=== PATIENT | male | born 1960 | race Caucasian/White ===

== ENCOUNTER 2023-12-20 13:45 | Emergency (ER) | payer MEDICARE, OTHER, SELFPAY ==
[2023-12-20 13:47] VITALS: BP 125/78
[2023-12-20 16:00] VITALS: BP 129/86
--- NOTE | 2023-12-20 16:31 | ED.GENMED ---
History of Present Illness
General
Chief Complaint: Musculo-Skeletal Complaint
Time Seen by Provider: 12/20/23 15:41
Travel History
Have you had any contact with someone who has COVID-19?: No
Do you have any symptoms of coronavirus? Fever > 100 degrees, chills, cough, shortness of breath, sore throat, loss of taste or smell, muscle aches, or headache?: No
History of Present Illness
History of Present Illness:
63-year-old male with history of Parkinson's status post deep brain stimulator presents to the emergency department for evaluation of right-sided abdominal pain. He states the pain began last night after 'diving into' bed but was not severe. Today
while trying to pull he felt something 'snap' in the right abdomen. Pain is present while he is at rest. It is worse when he bends over and stands back. Denies any fever, chills, sweats, nausea, vomiting, appetite changes, dysuria, or diarrhea.
No history of abdominal surgeries
Past History
Past History
ED Past Medical History: Other (Parkinsons)
ED Past Surgical History: Other (Brain surgery with inplanted Stimulator)
Social History
Tobacco: Non-smoker
Alcohol: None
Drug: None
Personal:
Living: with family
Review of Systems
Review of Systems
Allergies reviewed?: Yes
All Other Systems: ROS reviewed and negative except as documented in HPI and ROS
Phy Exam
Physical Exam
Physical Exam:
GEN: Well appearing, NAD, WDWN
HEENT: Oral mucosa moist, no scleral icterus
Cardiac: Regular rate
Lung: No respiratory distress, no tachypnea
Abdomen: Soft, minimal tenderness time right lower abdomen inferior to McBurney's point, essentially at the insertion of the anterior abdominal process into the pelvis.
MSK: No gross deformity or injuries
Skin: Good color, no pallor or jaundice, no rashes
Neuro: AO x3, moves all extremities freely
Psych: Calm, cooperative
Course
Orders/Labs/Results
Orders:
Orders
12/20/23 16:30
Ketorolac [Toradol] 30 mg IM NOW STA
Vital Signs
Initial and Last Documented VS:
Initial Vital Signs
Temp Pulse Resp BP Pulse Ox
97.7 F 56 20 125/78 98
12/20/23 13:47 12/20/23 13:47 12/20/23 13:47 12/20/23 13:47 12/20/23 13:47
Last Documented Vital Signs
Temp Pulse Resp BP Pulse Ox
97.7 F 75 20 129/86 98
12/20/23 13:47 12/20/23 16:00 12/20/23 16:00 12/20/23 16:00 12/20/23 16:00
MDM/Problems Addressed
MDM/Problems Addressed:
Patient very clearly had a mechanical injury last night that was worsened while bowling today. His abdominal exam, discussed supportive care
*Critical Care Note
Total Time (30-74mins, 75-104mins- exclusive of procedures): Not Applicable
ED Attending Note
-
Portions of this chart may have been created with voice recognition software.� Occasional wrong word or��sound alike� substitutions may have occurred due to the inherent limitations of voice recognition software.
Discharge Plan
Departure
Patient Disposition: Home (Routine Discharge)
Date of Disposition: 12/20/23
Time of Disposition: 16:32
Patient with high blood pressure during this ER visit?: No
Discharge Problem:
Strain of abdominal muscle
Instructions: Abdominal Muscle Strain (DC)
Prescriptions:
New
diclofenac sodium 75 mg tablet,delayed release (DR/EC)
75 mg PO BID PRN (Reason: Pain) Qty: 20 0RF
No Action
clonazepam 1 MG tablet
1.5 mg PO HS
selegiline HCl 5 MG tablet
5 mg PO DAILY
MIRAPEX
1 mg PO TID
Patient Comments:
Takes at 5,11,5
Stalevo
100 mg PO QID
carbidopa-levodopa 1 EACH tablet extended release
2 tab PO HS
epinephrine [EpiPen] 0.3 MG/0.3/SYRINGE auto-injector
0.3 mg IM PRN PRN (Reason: Bee sting) Qty: 1 0RF
multivitamin [Anb-Ntbozu-Dixtu] 1 EACH tablet
1 ea PO DAILY
carbidopa-levodopa 1 TABLET tablet
1 tab PO BID
albuterol sulfate 1 PUFF HFA aerosol inhaler
2 puff inhalation R Q4HPRN PRN (Reason: wheezing, shortness of breath) Qty: 0 0RF
Rx Instructions:
You may take 2 puff before exercising
cyclobenzaprine 10 MG tablet
10 mg PO TIDPRN PRN (Reason: muscle spasm) Qty: 30 0RF
diclofenac sodium 75 MG tablet,delayed release (DR/EC)
75 mg PO BID Qty: 30 0RF
Rx Instructions:
Take with food.
clindamycin HCl 300 mg capsule
300 mg PO TID Qty: 21 0RF
Referrals:
UNKNOWN - PT DOES,NOT KNOW [Family Provider] -
Interventions
Interventions:
*Risk Screen - Suicide Last Done: 12/20/23 16:00
*General Assessment Last Done: 12/20/23 16:00
*Neglect/Abuse Screening Last Done: 12/20/23 16:00
*ED COVID-19 Vaccine History Last Done: 12/20/23 13:47
*Nursing Disposition Last Done: 12/20/23 16:58
ED-Musculoskeletal Assessment Last Done: 12/20/23 16:00
Discharge Date and Time
Discharge Date/Time: 12/20/23 16:59
Print Language: [place] R[place]
[2023-12-20] MEDS: TORADOL 30 MG IM (16:45)
== END 2023-12-20 16:59 | disposition home or self-care (01) ==
LOC: EMR 13:45
PROVIDERS: EMERGENCY PHYSICIAN Student in an Organized Health Care Education/Training Program
DX: S39.011A Strain of muscle, fascia and tendon of abdomen, initial encounter (principal); X58.XXXA Exposure to other specified factors, initial encounter
CPT/HCPCS: 99284; 96372

== ENCOUNTER 2024-04-11 14:25 | Emergency (ER) | payer MEDICARE, OTHER, SELFPAY ==
[2024-04-11] VITALS (14 sets, daily range): BP systolic 116–154; BP diastolic 74–90; BMI 27.3
[2024-04-11] MEDS: SUBLIMAZE 100 MCG IV (14:54)
--- NOTE | 2024-04-11 15:17 | ED.GENMED ---
History of Present Illness
General
Chief Complaint: Musculo-Skeletal Complaint
Source: patient
Time Seen by Provider: 04/11/24 14:36
History of Present Illness
History of Present Illness:
64-year-old male presents to the emergency room complaining right shoulder pain. Patient had a trip and fall landing on an outstretched arm. He developed shoulder pain immediately. No other injuries. He does not take any oral anticoagulants.
Past History
Past History
ED Past Medical History: Other (Parkinsons)
ED Past Surgical History: Other (Brain surgery with inplanted Stimulator)
Social History
Tobacco: Non-smoker
Alcohol: None
Drug: None
Personal:
Living: with family
Phy Exam
Physical Exam
Physical Exam:
General: Awake, Alert, Oriented X3. Patient in distress due to shoulder pain
Vitals: unremarkable
Head: Atraumatic
Eyes: Pupils equal, EOMI
Throat: Airway intact, no exudates
Neck: Trachea midline
Lungs: Clear and equal b/l
Heart: Regular rate, no murmurs
Abd: Soft, Nontender, No pulsatile mass
Neuro: Nonfocal
Skin: Warm, dry, no rash
Extremities: Deformity right shoulder, neurovascularly intact
Course
Orders/Labs/Results
Orders:
Orders
04/11/24 14:47
Fentanyl Citrate/Pf [Sublimaze] 100 mcg IV NOW STA
04/11/24 14:48
CR Shoulder - Right Min 2 View Urgent
Reason For Exam: pain after fall
04/11/24 15:33
Propofol [Diprivan] 20 ml .ROUTE .STK-MED
04/11/24 15:40
Shoulder, Right 1 View [CR Shoulder - Right 1 View] Urgent
Comment:
Reason For Exam: post reduction
Vital Signs
Initial and Last Documented VS:
Initial Vital Signs
Temp Pulse Resp BP Pulse Ox
98.3 F 85 16 116/74 98
04/11/24 14:27 04/11/24 14:27 04/11/24 14:27 04/11/24 14:27 04/11/24 14:27
Last Documented Vital Signs
Temp Pulse Resp BP Pulse Ox
97.8 F 62 18 146/89 93
04/11/24 16:01 04/11/24 16:16 04/11/24 16:16 04/11/24 16:16 04/11/24 16:16
Procedures
Moderate Sedation
ASA Risk Score: Class III
Chart and allergies reviewed: Yes
Consent for anesthesia obtained: Yes
Time out completed (validating right patient & procedure): Yes
Moderate Sedation Start Time(when first medication is given): 15:36
History of difficult intubation: No
Airway free of obstruction: Yes
Patient has a gag reflex: Yes
Patient is able to open mouth: Yes
Patient has no dentures: No
Patient has no loose teeth: Yes
Medication administered by Provider during Moderate Sedation: IV Propofol (mg)
Total dose administered: 70
Time drug administered: 15:36
Moderate Sedation Procedure End Time: 15:46
Joint/Fracture Reduction
Right Shoulder:
Indication for procedure:: shoulder dislocation
Procedure completed by: myself and Kike Phipps
Consent form signed: Yes
Joint reduced: with anesthesia sedation
Anesthesia/sedation: Moderate sedation
Injury was: closed
Further treatement: needs re-check only
Post reduction exam: stable
Capillary Refill: normal
Normal distal neurovascular exam?: Yes
MDM/Problems Addressed
Differential Diagnosis Includes:
prox humeral fx, shoulder dislocation, clavicle fracture,
MDM/Problems Addressed:
X-ray confirms the presence of a right shoulder dislocation. Patient was in significant discomfort. This was initially treated with 100 mcg of fentanyl. He would not tolerate any attempt at reduction without sedation. Therefore procedural
sedation was given. Patient tolerated the sedation well. Shoulder was easily reduced with the help of Kike Espinoza PA-C. Will have patient follow-up with orthopedics as an outpatient. Will discharge him with a shoulder immobilizer.
Chronic conditions affecting care: Other (Parkinson's disease)
*Radiology
Radiology exam reviewed: preliminary read by ED provider (Initial x-ray shows a right shoulder dislocation without fracture. Postreduction x-ray shows adequate reduction.)
*Pulse Oximetry
Patient hypoxic: no
*Critical Care Note
Total Time (30-74mins, 75-104mins- exclusive of procedures): Not Applicable
Patient Management
Social determinants of health affecting care: Strong social support
ED Attending Note
-
Portions of this chart may have been created with voice recognition software.� Occasional wrong word or��sound alike� substitutions may have occurred due to the inherent limitations of voice recognition software.
Discharge Plan
Departure
Patient Disposition: Home (Routine Discharge)
Date of Disposition: 04/11/24
Time of Disposition: 16:24
Patient with high blood pressure during this ER visit?: No
Condition: Good
Discharge Problem:
Anterior shoulder dislocation
Instructions: Shoulder Dislocation (DC), How to Use a Shoulder Sling, Procedural Sedation, Adult ED
Prescriptions:
No Action
clonazepam 1 MG tablet
1.5 mg PO HS
selegiline HCl 5 MG tablet
5 mg PO DAILY
MIRAPEX
1 mg PO TID
Patient Comments:
Takes at 5,11,5
Stalevo
100 mg PO QID
carbidopa-levodopa 1 EACH tablet extended release
2 tab PO HS
epinephrine [EpiPen] 0.3 MG/0.3/SYRINGE auto-injector
0.3 mg IM PRN PRN (Reason: Bee sting) Qty: 1 0RF
multivitamin [Wcc-Herlct-Bpebh] 1 EACH tablet
1 ea PO DAILY
carbidopa-levodopa 1 TABLET tablet
1 tab PO BID
albuterol sulfate 1 PUFF HFA aerosol inhaler
2 puff inhalation R Q4HPRN PRN (Reason: wheezing, shortness of breath) Qty: 0 0RF
Rx Instructions:
You may take 2 puff before exercising
cyclobenzaprine 10 MG tablet
10 mg PO TIDPRN PRN (Reason: muscle spasm) Qty: 30 0RF
diclofenac sodium 75 MG tablet,delayed release (DR/EC)
75 mg PO BID Qty: 30 0RF
Rx Instructions:
Take with food.
clindamycin HCl 300 mg capsule
300 mg PO TID Qty: 21 0RF
diclofenac sodium 75 mg tablet,delayed release (DR/EC)
75 mg PO BID PRN (Reason: Pain) Qty: 20 0RF
Referrals:
Steve Mckeon MD [Active] -
Sarah Pickering PA-C [Family Provider] -
Interventions
Interventions:
*Risk Screen - Suicide Last Done: 04/11/24 17:00
*General Assessment Last Done: 04/11/24 14:27
*Neglect/Abuse Screening Last Done: 04/11/24 14:27
ED- Fall Risk Assessment Last Done: 04/11/24 16:10
*ED COVID-19 Vaccine History Last Done: 04/11/24 14:40
*Nursing Disposition Last Done: 04/11/24 17:00
ED-Musculoskeletal Assessment Last Done: 04/11/24 14:40
Discharge Date and Time
Discharge Date/Time: 04/11/24 17:00
Print Language: MONGOLIAN
== END 2024-04-11 17:00 | disposition home or self-care (01) ==
LOC: EMR 14:25
PROVIDERS: EMERGENCY PHYSICIAN Emergency Medicine; FAMILY PHYSICIAN Physician Assistant Medical
DX: S43.004A Unspecified dislocation of right shoulder joint, initial encounter (principal); W01.0XXA Fall on same level from slipping, tripping and stumbling without subsequent striking against object, initial encounter; G20.A1 Parkinson's disease without dyskinesia, without mention of fluctuations; Z91.030 Bee allergy status; Z91.048 Other nonmedicinal substance allergy status
CPT/HCPCS: 99285; 23650; 96374; 99152; 73020; 73030

== ENCOUNTER 2024-05-05 14:32 | Emergency (ER) | payer MEDICARE, OTHER, SELFPAY ==
[2024-05-05 14:44] VITALS: BP 142/86
--- NOTE | 2024-05-05 15:37 | ED.GENMED ---
History of Present Illness
General
Chief Complaint: Fall
Time Seen by Provider: 05/05/24 15:37
History of Present Illness
History of Present Illness:
HPI: The patient presents after multiple falls. He wanted to come in for further evaluation to make sure everything is okay. However he also tells me he feels safe at home and does not feel that he needs to be placed anywhere. He fell while he
was [place] cruise ship recently and he states that they reduced the right shoulder dislocation at that time. He fell yesterday striking his face/head on the table there which she has facial ecchymosis. He fell 3 additional times a day and thinks
that he dislocated his shoulder 3 times a day I was able to reduce it on his own.
EXAM:
GENERAL: The patient appears somewhat weak and debilitated
HEAD: There is no scalp hematoma but there is facial ecchymosis and edema noted to the nasal bone and left periorbital region but no bony tenderness
C-SPINE: No midline C-spine tenderness
HEENT: Moist oral mucosa
CARDIOVASCULAR: No murmurs, normal heart rate, regular rhythm, No chest wall tenderness
PULMONARY: No respiratory distress, breath sounds are clear and equal
ABDOMEN: Soft with no peritoneal signs, no tenderness
NEUROLOGIC: Equally decreased strength in all extremities, no sensory deficits, bradykinesia
PSYCHIATRIC: Appropriate mental status, normal insight and judgement
EXTREMITIES: Nontender, no edema, decreased active range of motion equally in all extremities but most notable in the right glenohumeral region, no bony tenderness
SKIN: No rash, no lesions
TIME OF INITIAL ENCOUNTER: 3:40 PM
NUMBER AND COMPLEXITY OF PROBLEMS ADDRESSED AT THE ENCOUNTER
� Chronic conditions affecting care: Parkinson's, frequent falls
� Acute Exacerbation and/or Progression of Chronic Illness: This is an acute exacerbation of chronic problem
� Differential Diagnosis includes: Progressive functional decline, shoulder dislocation, shoulder fracture, AC separation/sprain
AMOUNT AND/OR COMPLEXITY OF DATA TO BE REVIEWED AND ANALYZED
� I performed an independent evaluation of and my interpretation is:
EKG:
CT: I personally reviewed CT and show the leads for the deep brain stimulator but see no acute hemorrhage
X-rays: I personally viewed x-ray of the right shoulder and see no evidence of fracture or dislocation
Laboratory Studies:
Other:
� Review of other/old records: I reviewed records. The patient was here with a shoulder dislocation nearly 1 month ago.
� Clinical information was obtained by an independent historian: None needed
� Prescriptions/Medications Considered but not given:
� Further testing considered but not performed:
RISK OF COMPLICATIONS AND/OR MORBIDITY OR MORTALITY OF PATIENT MANAGEMENT
� Social determinants of health affecting care: The patient lives at home with his ; he was dropped off here by his friends
� Discussion with other providers:
� Escalation of care including admission/observation vs risk of discharge considered: I did consider social work evaluation however the patient feels comfortable with going home as he wants to get his right shoulder ultrasound
tomorrow. He appears fairly comfortable and denies any pain.
Past History
Past History
ED Past Medical History: Other (Parkinsons)
ED Past Surgical History: Other (Brain surgery with inplanted Stimulator)
Social History
Tobacco: Non-smoker
Alcohol: None
Drug: None
Personal:
Living: with family
Phy Exam
Physical Exam
Physical Exam:
See HPI
Course
Orders/Labs/Results
Orders:
Orders
05/05/24 14:45
CT Head W/o Iv Contrast Urgent
Comment:
Reason For Exam: fall
CR Shoulder, Trauma - Right Urgent
Reason For Exam: fall
Vital Signs
Initial and Last Documented VS:
Initial Vital Signs
Temp Pulse Resp BP Pulse Ox
98.7 F 73 18 142/86 97
05/05/24 14:44 05/05/24 14:44 05/05/24 14:44 05/05/24 14:44 05/05/24 14:44
Last Documented Vital Signs
Temp Pulse Resp BP Pulse Ox
98.7 F 73 18 136/84 97
05/05/24 14:44 05/05/24 14:44 05/05/24 14:44 05/05/24 16:37 05/05/24 14:44
*Critical Care Note
Total Time (30-74mins, 75-104mins- exclusive of procedures): Not Applicable
ED Attending Note
-
Portions of this chart may have been created with voice recognition software.� Occasional wrong word or��sound alike� substitutions may have occurred due to the inherent limitations of voice recognition software.
Discharge Plan
Departure
Patient Disposition: Home (Routine Discharge)
Date of Disposition: 05/05/24
Time of Disposition: 16:23
Patient with high blood pressure during this ER visit?: Yes
Discharge Problem:
Frequent falls
Instructions: Preventing Falls ED, BLOOD PRESSURE
Prescriptions:
No Action
clonazepam 1 MG tablet
1.5 mg PO HS
selegiline HCl 5 MG tablet
5 mg PO DAILY
MIRAPEX
1 mg PO TID
Patient Comments:
Takes at 5,11,5
Stalevo
100 mg PO QID
carbidopa-levodopa 1 EACH tablet extended release
2 tab PO HS
epinephrine [EpiPen] 0.3 MG/0.3/SYRINGE auto-injector
0.3 mg IM PRN PRN (Reason: Bee sting) Qty: 1 0RF
multivitamin [Kzf-Qhtuir-Uzous] 1 EACH tablet
1 ea PO DAILY
carbidopa-levodopa 1 TABLET tablet
1 tab PO BID
albuterol sulfate 1 PUFF HFA aerosol inhaler
2 puff inhalation R Q4HPRN PRN (Reason: wheezing, shortness of breath) Qty: 0 0RF
Rx Instructions:
You may take 2 puff before exercising
cyclobenzaprine 10 MG tablet
10 mg PO TIDPRN PRN (Reason: muscle spasm) Qty: 30 0RF
diclofenac sodium 75 MG tablet,delayed release (DR/EC)
75 mg PO BID Qty: 30 0RF
Rx Instructions:
Take with food.
clindamycin HCl 300 mg capsule
300 mg PO TID Qty: 21 0RF
diclofenac sodium 75 mg tablet,delayed release (DR/EC)
75 mg PO BID PRN (Reason: Pain) Qty: 20 0RF
Activity Restrictions/Additional Instructions:
The CAT scan of your brain shows no acute abnormality including no bleeding. The shoulder x-ray shows no sign of fracture or dislocation. Please follow-up with your doctors. Return here if worse or other concerns.
Interventions
Interventions:
*Risk Screen - Suicide Last Done: 05/05/24 15:43
*General Assessment Last Done: 05/05/24 15:43
*Neglect/Abuse Screening Last Done: 05/05/24 15:43
ED- Fall Risk Assessment Last Done: 05/05/24 15:43
*ED COVID-19 Vaccine History Last Done: 05/05/24 15:43
*Nursing Disposition Last Done: 05/05/24 16:37
ED-Musculoskeletal Assessment Last Done: 05/05/24 15:41
ED- Neurological Assessment Last Done: 05/05/24 15:43
ED-Skin Assessment Last Done: 05/05/24 15:41
Discharge Date and Time
Discharge Date/Time: 05/05/24 16:43
Print Language: BELARUSIAN
[2024-05-05 15:43] VITALS: BMI 22.2
[2024-05-05 16:37] VITALS: BP 136/84
== END 2024-05-05 16:43 | disposition home or self-care (01) ==
LOC: EMR 14:32
PROVIDERS: EMERGENCY PHYSICIAN Emergency Medicine
DX: S00.83XA Contusion of other part of head, initial encounter (principal); R60.0 Localized edema; W18.39XA Other fall on same level, initial encounter; R03.0 Elevated blood-pressure reading, without diagnosis of hypertension; G20.A1 Parkinson's disease without dyskinesia, without mention of fluctuations; R29.6 Repeated falls; Z91.030 Bee allergy status; Z91.048 Other nonmedicinal substance allergy status
CPT/HCPCS: 99284; 70450; 73030

== ENCOUNTER → 2024-05-06 10:03 | Outpatient (REF) | payer MEDICARE, OTHER, SELFPAY | LOC: RAD 10:03 | PROVIDERS: ATTENDING PHYSICIAN Physician Assistant Surgical; FAMILY PHYSICIAN Physician Assistant Medical | DX: S43.394A Dislocation of other parts of right shoulder girdle, initial encounter (principal); M79.621 Pain in right upper arm | CPT/HCPCS: 76881 ==

== ENCOUNTER 2024-05-22 05:27 | Emergency (ER) | payer MEDICARE, OTHER, SELFPAY ==
[2024-05-22] VITALS (36 sets, daily range): BP systolic 138–186; BP diastolic 81–96; BMI 35.2
--- NOTE | 2024-05-22 06:02 | ED.GENMED ---
History of Present Illness
General
Chief Complaint: Musculo-Skeletal Complaint
Time Seen by Provider: 05/22/24 05:59
History of Present Illness
History of Present Illness:
HPI: The patient presents from home by ambulance due to suspected right shoulder dislocation. Approximately [address] back in the bed after going to the bathroom, he felt his right shoulder 'popped out'. There is no other injury. Of
note the patient has had 2 other recent dislocations and saw Dr. Mckeon recently who also suspects rotator cuff injury as well.
EXAM:
GENERAL: The patient appears somewhat weak and debilitated
CERVICAL SPINE: No midline c-spine tenderness with excellent AROM
HEAD: Older appearing ecchymosis noted over the zygomatic arches bilaterally
CHEST: No chest wall tenderness, normal heart sounds
LUNGS: Equal lung sounds, no respiratory distress
ABDOMEN: No abdominal tenderness, no peritoneal signs
EXTREMITIES: He holds the right upper extremity in abduction, there is mild tenderness at the proximal humerus and there is absence of the proximal humerus and the glenoid
NEURO: Good distal strength all extremities, appropriate mental status, normal speech/language
TIME OF INITIAL ENCOUNTER: 6:30 AM
NUMBER AND COMPLEXITY OF PROBLEMS ADDRESSED AT THE ENCOUNTER
� Chronic conditions affecting care: Parkinson's, recurrent shoulder dislocations
� Acute Exacerbation and/or Progression of Chronic Illness: This is an acute but recurring problem
� Differential Diagnosis includes: Shoulder dislocation, shoulder fracture
AMOUNT AND/OR COMPLEXITY OF DATA TO BE REVIEWED AND ANALYZED
� I performed an independent evaluation of and my interpretation is:
EKG:
CT:
X-rays: I personally viewed x-ray and see evidence of dislocation; postreduction x-ray confirms reduction
Laboratory Studies:
Other:
� Review of other/old records: I reviewed records�the patient was here recently with dislocation of the right shoulder
� Clinical information was obtained by an independent historian: I spoke to the at bedside
� Prescriptions/Medications Considered but not given:
� Further testing considered but not performed:
RISK OF COMPLICATIONS AND/OR MORBIDITY OR MORTALITY OF PATIENT MANAGEMENT
� Social determinants of health affecting care: Lives at home
� Discussion with other providers:
� Escalation of care including admission/observation vs risk of discharge considered: The patient was successfully reduced with a total of 40 mg of propofol. He is to follow-up with Dr. Mckeon. He does have some ongoing pain at
the shoulder which I suspect is soft tissue related�postreduction x-ray confirms reduction.
Past History
Past History
ED Past Medical History: Other (Parkinsons)
ED Past Surgical History: Other (Brain surgery with inplanted Stimulator)
Social History
Tobacco: Non-smoker
Alcohol: None
Drug: None
Personal:
Living: with family
Phy Exam
Physical Exam
Physical Exam:
See HPI
Course
Orders/Labs/Results
Orders:
Orders
05/22/24 06:03
CR Shoulder, Trauma - Right Urgent
Comment:
Reason For Exam: possible dislocation
05/22/24 07:29
Fentanyl Citrate/Pf [Sublimaze] 100 mcg .ROUTE .STK-MED ONE
Fentanyl Citrate/Pf [Sublimaze] 50 mcg IV NOW STA
Propofol [Diprivan] 20 ml .ROUTE .STK-MED
05/22/24 07:40
CR Shoulder, Trauma - Right Urgent
Comment:
Reason For Exam: post reduction, please do portable
Vital Signs
Initial and Last Documented VS:
Initial Vital Signs
Temp Pulse Resp BP Pulse Ox
97.6 F 73 18 173/81 96
05/22/24 05:33 05/22/24 05:33 05/22/24 05:33 05/22/24 05:33 05/22/24 05:33
Last Documented Vital Signs
Temp Pulse Resp BP Pulse Ox
98.5 F 71 20 174/88 96
05/22/24 08:07 05/22/24 08:12 05/22/24 08:12 05/22/24 08:12 05/22/24 08:12
Procedures
Moderate Sedation
ASA Risk Score: Class II
Chart and allergies reviewed: Yes
Consent for anesthesia obtained: Yes
Time out completed (validating right patient & procedure): Yes
Moderate Sedation Start Time(when first medication is given): 07:32
History of difficult intubation: No
Airway free of obstruction: Yes
Patient has a gag reflex: Yes
Patient is able to open mouth: Yes
Patient has no dentures: Yes
Patient has no loose teeth: Yes
Medication administered by Provider during Moderate Sedation: IV Propofol (mg)
Total dose administered: 40
Time drug administered: 07:32
Comment: Patient was given 20 mg then additional 20 mg for total of 40 mg of propofo
Joint/Fracture Reduction
Right Shoulder:
Indication for procedure:: Dislocation
Procedure completed by: DeDr. Alberto
Consent form signed: Yes
Joint reduced: with anesthesia sedation
Anesthesia/sedation: Moderate sedation
Injury was: closed
Further treatement: no treatment needed
*Critical Care Note
Total Time (30-74mins, 75-104mins- exclusive of procedures): Not Applicable
ED Attending Note
-
Portions of this chart may have been created with voice recognition software.� Occasional wrong word or��sound alike� substitutions may have occurred due to the inherent limitations of voice recognition software.
Discharge Plan
Departure
Patient Disposition: Home (Routine Discharge)
Date of Disposition: 05/22/24
Time of Disposition: 08:17
Patient with high blood pressure during this ER visit?: Yes
Discharge Problem:
Dislocation of shoulder
Instructions: Shoulder Dislocation (DC), BLOOD PRESSURE
Prescriptions:
No Action
clonazepam 1 MG tablet
1.5 mg PO HS
selegiline HCl 5 MG tablet
5 mg PO DAILY
MIRAPEX
1 mg PO TID
Patient Comments:
Takes at 5,11,5
Stalevo
100 mg PO QID
carbidopa-levodopa 1 EACH tablet extended release
2 tab PO HS
epinephrine [EpiPen] 0.3 MG/0.3/SYRINGE auto-injector
0.3 mg IM PRN PRN (Reason: Bee sting) Qty: 1 0RF
multivitamin [Jvd-Arrzfc-Vggfk] 1 EACH tablet
1 ea PO DAILY
carbidopa-levodopa 1 TABLET tablet
1 tab PO BID
albuterol sulfate 1 PUFF HFA aerosol inhaler
2 puff inhalation R Q4HPRN PRN (Reason: wheezing, shortness of breath) Qty: 0 0RF
Rx Instructions:
You may take 2 puff before exercising
cyclobenzaprine 10 MG tablet
10 mg PO TIDPRN PRN (Reason: muscle spasm) Qty: 30 0RF
diclofenac sodium 75 MG tablet,delayed release (DR/EC)
75 mg PO BID Qty: 30 0RF
Rx Instructions:
Take with food.
clindamycin HCl 300 mg capsule
300 mg PO TID Qty: 21 0RF
diclofenac sodium 75 mg tablet,delayed release (DR/EC)
75 mg PO BID PRN (Reason: Pain) Qty: 20 0RF
Referrals:
Steve Mckeon MD [Active] - Follow up in 2-3 days
Sarah Pickering PA-C [Family Provider] -
Activity Restrictions/Additional Instructions:
No driving or making any important decisions today as you did receive propofol for sedation. Follow-up with Dr. Mckeon. Return here if worse. Tylenol is safest for pain.
Interventions
Interventions:
*Risk Screen - Suicide Last Done: 05/22/24 06:15
*General Assessment Last Done: 05/22/24 06:15
*Neglect/Abuse Screening Last Done: 05/22/24 06:15
*ED COVID-19 Vaccine History Last Done: 05/22/24 06:15
ED-Musculoskeletal Assessment Last Done: 05/22/24 06:15
Discharge Date and Time
Print Language: LAO
[2024-05-22] MEDS: SUBLIMAZE 50 MCG IV (07:30)
--- NOTE | 2024-05-22 08:13 | EDRN ---
Dr. Alberto currently at the [facility] bedside
--- NOTE | 2024-05-22 08:24 | EDRN ---
the pt stated to this RN and Dr. Alberto that he needed to urinate, this RN lowered the side rail and attempted to have the pt stand up and the pt stated that he did not want to stand up, no c/o dizziness or lightheadedness, VS WNL, per
provider will attempt to get the pt up out of stretcher at a later time, will continue to monitor the pt closely
== END 2024-05-22 09:06 | disposition home or self-care (01) ==
LOC: EMR 05:27
PROVIDERS: EMERGENCY PHYSICIAN Emergency Medicine; FAMILY PHYSICIAN Physician Assistant Medical
DX: S43.004A Unspecified dislocation of right shoulder joint, initial encounter (principal); X58.XXXA Exposure to other specified factors, initial encounter; G20.A1 Parkinson's disease without dyskinesia, without mention of fluctuations; R03.0 Elevated blood-pressure reading, without diagnosis of hypertension
CPT/HCPCS: 99285; 23650; 96374; 99152; 73030

== ENCOUNTER → 2024-06-02 08:02 | Outpatient (REF) | payer MEDICARE, OTHER, SELFPAY | LOC: RAD 08:02 | PROVIDERS: ATTENDING PHYSICIAN Physician Assistant Surgical; FAMILY PHYSICIAN Physician Assistant Medical | DX: S43.394A Dislocation of other parts of right shoulder girdle, initial encounter (principal) | CPT/HCPCS: 73200 ==

== ENCOUNTER 2024-06-04 16:02 | Emergency (ER) | payer MEDICARE, OTHER, SELFPAY ==
[2024-06-04] VITALS (35 sets, daily range): BP systolic 146–171; BP diastolic 77–98
--- NOTE | 2024-06-04 16:30 | ED.GENMED ---
History of Present Illness
General
Chief Complaint: Musculo-Skeletal Complaint
Time Seen by Provider: 06/04/24 16:30
History of Present Illness
History of Present Illness:
HPI: Patient comes in by ambulance due to right shoulder injury. He saw Dr. Mckeon and is planning to have a total revision of the right shoulder as he has had multiple right shoulder dislocations. He had been in a sling and fell onto the right
shoulder and feels that his right shoulder has dislocated again.
EXAM:
GENERAL: Appears in mild to moderate distress
CERVICAL SPINE: No midline c-spine tenderness with excellent AROM
HEAD: No evidence of craniofacial trauma
EXTREMITIES: Markedly decreased active range of motion at the right upper extremity at the shoulder due to pain, there is absence of the proximal humerus and the glenoid
NEURO: Bradykinesia noted, fair strength all extremities, appropriate mental status, normal speech/language
TIME OF INITIAL ENCOUNTER: 4:30 PM
NUMBER AND COMPLEXITY OF PROBLEMS ADDRESSED AT THE ENCOUNTER
� Chronic conditions affecting care: Parkinson's, recurrent shoulder dislocations
� Acute Exacerbation and/or Progression of Chronic Illness: This is an acute exacerbation of a chronic problem
� Differential Diagnosis includes: Shoulder dislocation, shoulder contusion
AMOUNT AND/OR COMPLEXITY OF DATA TO BE REVIEWED AND ANALYZED
� I performed an independent evaluation of and my interpretation is:
EKG:
CT:
X-rays: I reviewed the initial x-ray which shows dislocation and postprocedural x-rays confirmed successful reduction
Laboratory Studies:
Other:
� Review of other/old records: I reviewed records�I saw the patient and was the one who reduced his shoulder last time he was here
� Clinical information was obtained by an independent historian: I spoke to the at bedside
� Prescriptions/Medications Considered but not given:
� Further testing considered but not performed:
RISK OF COMPLICATIONS AND/OR MORBIDITY OR MORTALITY OF PATIENT MANAGEMENT
� Social determinants of health affecting care: Lives at home
� Discussion with other providers: I notified Dr. Orozco agrees that there would be no further surgery at this time
� Escalation of care including admission/observation vs risk of discharge considered: Dislocation was successfully reduced with procedural sedation
Past History
Past History
ED Past Medical History: Other (Parkinsons)
ED Past Surgical History: Other (Brain surgery with inplanted Stimulator)
Social History
Tobacco: Non-smoker
Alcohol: None
Drug: None
Personal:
Living: with family
Phy Exam
Physical Exam
Physical Exam:
See HPI
Course
Orders/Labs/Results
Orders:
Orders
06/04/24 17:02
Shoulder, Right, Trauma [CR Shoulder, Trauma - Right] Urgent
Comment:
Reason For Exam: fall dislocation
06/04/24 17:27
Propofol [Diprivan] 20 ml .ROUTE .STK-MED
06/04/24 17:47
CR Shoulder, Trauma - Right Urgent
Reason For Exam: post reduction
Vital Signs
Initial and Last Documented VS:
Initial Vital Signs
Temp Pulse Resp BP Pulse Ox
98.7 F 75 20 163/85 95
06/04/24 16:06 06/04/24 16:06 06/04/24 16:06 06/04/24 16:06 06/04/24 16:06
Last Documented Vital Signs
Temp Pulse Resp BP Pulse Ox
97.4 F 77 21 149/88 98
06/04/24 18:54 06/04/24 18:54 06/04/24 18:54 06/04/24 18:54 06/04/24 18:54
Procedures
Moderate Sedation
ASA Risk Score: Class III
Chart and allergies reviewed: Yes
Consent for anesthesia obtained: Yes
Time out completed (validating right patient & procedure): Yes
Moderate Sedation Start Time(when first medication is given): 17:44
History of difficult intubation: No
Airway free of obstruction: Yes
Patient has a gag reflex: Yes
Patient is able to open mouth: Yes
Patient has no dentures: Yes
Patient has no loose teeth: Yes
Medication administered by Provider during Moderate Sedation: IV Propofol (mg)
Total dose administered: 40
Time drug administered: 17:44
Moderate Sedation Procedure End Time: 17:55
Joint/Fracture Reduction
Right Shoulder:
Joint reduced: with anesthesia sedation
Injury was: closed
Further treatement: no treatment needed
Post reduction exam: stable
Capillary Refill: normal
Normal distal neurovascular exam?: Yes
*Critical Care Note
Total Time (30-74mins, 75-104mins- exclusive of procedures): Not Applicable
ED Attending Note
-
Portions of this chart may have been created with voice recognition software.� Occasional wrong word or��sound alike� substitutions may have occurred due to the inherent limitations of voice recognition software.
Discharge Plan
Departure
Patient Disposition: Home (Routine Discharge)
Date of Disposition: 06/04/24
Time of Disposition: 19:07
Patient with high blood pressure during this ER visit?: Yes
Discharge Problem:
Dislocation, shoulder, recurrent
Instructions: Shoulder Dislocation (DC)
Prescriptions:
No Action
clonazepam 1 MG tablet
1.5 mg PO HS
selegiline HCl 5 MG tablet
5 mg PO DAILY
MIRAPEX
1 mg PO TID
Patient Comments:
Takes at 5,11,5
Stalevo
100 mg PO QID
carbidopa-levodopa 1 EACH tablet extended release
2 tab PO HS
epinephrine [EpiPen] 0.3 MG/0.3/SYRINGE auto-injector
0.3 mg IM PRN PRN (Reason: Bee sting) Qty: 1 0RF
multivitamin [Hnq-Nykpgo-Cgdmy] 1 EACH tablet
1 ea PO DAILY
carbidopa-levodopa 1 TABLET tablet
1 tab PO BID
albuterol sulfate 1 PUFF HFA aerosol inhaler
2 puff inhalation R Q4HPRN PRN (Reason: wheezing, shortness of breath) Qty: 0 0RF
Rx Instructions:
You may take 2 puff before exercising
cyclobenzaprine 10 MG tablet
10 mg PO TIDPRN PRN (Reason: muscle spasm) Qty: 30 0RF
diclofenac sodium 75 MG tablet,delayed release (DR/EC)
75 mg PO BID Qty: 30 0RF
Rx Instructions:
Take with food.
clindamycin HCl 300 mg capsule
300 mg PO TID Qty: 21 0RF
diclofenac sodium 75 mg tablet,delayed release (DR/EC)
75 mg PO BID PRN (Reason: Pain) Qty: 20 0RF
Referrals:
Sarah Pickering PA-C [Family Provider] -
Activity Restrictions/Additional Instructions:
The initial x-ray confirmed the dislocation and after the procedure, the shoulder has been successfully reduced. Follow-up with Dr. Mckeon. I did notify Dr. Garcia who agrees that they would not be doing anything else further at this time.
Interventions
Interventions:
*Risk Screen - Suicide Last Done: 06/04/24 16:06
*General Assessment Last Done: 06/04/24 16:06
*Neglect/Abuse Screening Last Done: 06/04/24 16:06
ED- Fall Risk Assessment Last Done: 06/04/24 16:06
*ED COVID-19 Vaccine History Last Done: 06/04/24 17:37
ED-Musculoskeletal Assessment Last Done: 06/04/24 16:06
Discharge Date and Time
Print Language: [place]
== END 2024-06-04 20:09 | disposition home or self-care (01) ==
LOC: EMR 16:02
PROVIDERS: EMERGENCY PHYSICIAN Emergency Medicine; FAMILY PHYSICIAN Physician Assistant Medical
DX: S43.004A Unspecified dislocation of right shoulder joint, initial encounter (principal); W19.XXXA Unspecified fall, initial encounter; G20.A1 Parkinson's disease without dyskinesia, without mention of fluctuations
CPT/HCPCS: 99284; 23650; 99152; 73030

== ENCOUNTER 2024-06-19 06:01 | Day surgery (SDC) | payer MEDICARE, OTHER, SELFPAY ==
[2024-06-19] VITALS (9 sets, daily range): BP systolic 107–152; BP diastolic 59–86; BMI 30.6
[2024-06-19] MEDS: TYLENOL 1000 MG PO (06:49)
[2024-06-19] MEDS: CELEBREX 200 MG PO (06:50)
--- NOTE | 2024-06-19 10:51 | VNURNOTE ---
Received request for HH from [facility]. Home Health Liaison spoke with spouse Chetna to discuss [facility] nurse/therapy, visits, schedule and homebound status. She is agreeable and understands that visits at home will be 2-3 x per week to assess and
teach medical management. The patient is home alone during the day. She is also interested in additional resources for companions. HEAD OPERATOR consult to be placed in [facility] referral.
She is aware that [facility] will contact them for start of care in 1-2 days after discharge from .
[facility] referral completed in [facility].
[2024-06-19] MEDS: ERYTHROMYCIN 0.5% OPHTHALMIC OINTMENT 1 APPLIC OPHTH (11:51)
== END 2024-06-19 12:28 | disposition home or self-care (01) ==
LOC: SDS 06:01
PROVIDERS: ATTENDING PHYSICIAN Specialist
DX: M75.101 Unspecified rotator cuff tear or rupture of right shoulder, not specified as traumatic (principal); G20.A1 Parkinson's disease without dyskinesia, without mention of fluctuations; M25.311 Other instability, right shoulder; M75.41 Impingement syndrome of right shoulder
CPT/HCPCS: 29827; 29828; 29823; 93005; C1713

== ENCOUNTER → 2024-08-18 07:23 | Outpatient (REF) | payer MEDICARE, OTHER, SELFPAY | LOC: HWRCS 07:23 | PROVIDERS: ATTENDING PHYSICIAN Student in an Organized Health Care Education/Training Program; FAMILY PHYSICIAN Internal Medicine | DX: I51.7 Cardiomegaly (principal) | CPT/HCPCS: 93306 ==

== ENCOUNTER 2024-09-23 11:04 | Emergency (ER) | payer MEDICARE, OTHER, SELFPAY ==
[2024-09-23 11:06] VITALS: BP 140/81
--- NOTE | 2024-09-23 13:08 | ED.GENMED ---
History of Present Illness
General
Chief Complaint: Skin Surface Trauma
Source: patient
Exam Limitations: none
Time Seen by Provider: 09/23/24 11:27
Nursing documentation reviewed up to this point in time: agreed with
History of Present Illness
History of Present Illness:
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 Denies headache.
Denies neck pain. Denies loss of consciousness. Denies dizziness. Denies blurred vision. Denies nausea or vomiting. Denies loss of sensation or weakness. Patient does not take any blood thinning medications. Patient's vaccinations up-to-date.
Past History
Past History
ED Past Medical History: Other (Parkinsons)
ED Past Surgical History: Other (Brain surgery with inplanted Stimulator)
Social History
Tobacco: Non-smoker
Alcohol: None
Drug: None
Personal:
Living: with family
Review of Systems
Review of Systems
Allergies reviewed?: Yes
All Other Systems: ROS reviewed and negative except as documented in HPI and ROS
Constitutional: Reports no symptoms
Cardiac: Denies syncope
ABD/GI: Reports no symptoms; Denies nausea or vomiting
Musculoskeletal: Reports no symptoms
Skin: Reports other (Scalp laceration)
Neurological: Reports no symptoms; Denies dizzy, headache or weakness
Phy Exam
Physical Exam
Physical Exam:
Physical Exam
General: no apparent distress, not acutely ill. afebrile
Head: an approx 4cm superficial, linear vertical laceration over right frontal scalp without active bleeding.
Neck: supple. normal range of motion.
Lungs: no acute respiratory distress. clear bilaterally. chest wall nontender to palpation.
Abdomen: normal bowel sounds. not tender.
Neuro: alert and oriented. no focal neurological deficits
Skin: no rash
Psychiatric: well kept. interactive and cooperative
Extremities: no edema.
Course
Vital Signs
Initial and Last Documented VS:
Initial Vital Signs
Temp Pulse Resp BP Pulse Ox
97.8 F 64 16 140/81 100
09/23/24 11:06 09/23/24 11:06 09/23/24 11:06 09/23/24 11:06 09/23/24 11:06
Last Documented Vital Signs
Temp Pulse Resp BP Pulse Ox
97.8 F 69 16 138/78 99
09/23/24 11:06 09/23/24 13:26 09/23/24 13:26 09/23/24 13:26 09/23/24 13:26
Procedures
Laceration Closure
Right Lateral Scalp:
Status of Wound: clean
Size of Wound in cm: 4
Description of Wound Edges: sharp
Preparation: cleaned with saline
Anesthesia: 1% Lidocaine
Revision/Debridement: routine- no revision
Type of Closure: single layer closure
Skin Closure Material: 5-0 nylon
Number of sutures: 5
MDM/Problems Addressed
MDM/Problems Addressed:
Wound well-approximated with placement of 5 sutures. Based on mechanism and his presenting symptoms, no indication for imaging studies at this time. Patient and spouse agree with treatment plan. Will return to ED with any worsening symptoms. In
the meantime, advised PCP follow-up for reevaluation, including suture removal in 7 to 10 days.
*Critical Care Note
Total Time (30-74mins, 75-104mins- exclusive of procedures): Not Applicable
ED Attending Note
-
Portions of this chart may have been created with voice recognition software.� Occasional wrong word or��sound alike� substitutions may have occurred due to the inherent limitations of voice recognition software.
Discharge Plan
Departure
Patient Disposition: Home (Routine Discharge)
Date of Disposition: 09/23/24
Time of Disposition: 13:21
Patient with high blood pressure during this ER visit?: Yes
Condition: Good
Discharge Problem:
Laceration of scalp, Head injury
Instructions: Head injury in adults, Laceration Repair With Stitches (DC)
Prescriptions:
No Action
clonazepam 1 MG tablet
2.5 mg PO HS
selegiline HCl 5 MG tablet
5 mg PO DAILY
Stalevo
150 mg PO .6 TIMES A DAY
carbidopa-levodopa 1 TABLET tablet
1 tab PO BID
albuterol sulfate 1 PUFF HFA aerosol inhaler
2 puff inhalation R Q4HPRN PRN (Reason: wheezing, shortness of breath) Qty: 0 0RF
Rx Instructions:
You may take 2 puff before exercising
multivitamin Tablet
1 tab PO DAILY
epinephrine [EpiPen] 0.3 mg/0.3 mL Auto-Injector
0.3 mg IM ONCE
pramipexole [Mirapex ER] 3 mg Tablet Extended Release 24 Hr
3 mg PO HS
rivastigmine tartrate [Exelon] 1.5 mg Capsule
1.5 mg PO BID
fexofenadine 60 mg Tablet
60 mg PO PRN PRN (Reason: allergy symptoms)
acetaminophen [Acetaminophen Extra Strength] 500 mg Tablet
500 mg PO Q6H PRN (Reason: pain)
amitriptyline 25 mg Tablet
12.5 mg PO HS
oxycodone 5 mg Tablet
5 mg PO Q4H PRN (Reason: pain)
Augmentin
1 tab PO BID
Patient Comments:
for tooth infection, today is last day
Activity Restrictions/Additional Instructions:
As discussed, please follow-up with your primary care physician for reevaluation, including suture removal in 7 to 10 days.
Interventions
Interventions:
*Risk Screen - Suicide Last Done: 09/23/24 11:06
*General Assessment Last Done: 09/23/24 11:42
*Neglect/Abuse Screening Last Done: 09/23/24 11:06
ED- Fall Risk Assessment Last Done: 09/23/24 13:26
*ED COVID-19 Vaccine History Last Done: 09/23/24 11:42
*Nursing Disposition Last Done: 09/23/24 13:26
ED-Skin Assessment Last Done: 09/23/24 11:50
Discharge Date and Time
Discharge Date/Time: 09/23/24 13:37
Print Language: [id number]
[2024-09-23 13:26] VITALS: BP 138/78
== END 2024-09-23 13:37 | disposition home or self-care (01) ==
LOC: EMR 11:04
PROVIDERS: EMERGENCY PHYSICIAN Emergency Medicine; FAMILY PHYSICIAN Physician Assistant Medical
DX: S01.01XA Laceration without foreign body of scalp, initial encounter (principal); S09.90XA Unspecified injury of head, initial encounter; W01.0XXA Fall on same level from slipping, tripping and stumbling without subsequent striking against object, initial encounter; G20.A1 Parkinson's disease without dyskinesia, without mention of fluctuations
CPT/HCPCS: 99282; 12002